=== PATIENT | female | born 1950 | race Caucasian/White ===

== ENCOUNTER 2018-04-25 20:21 | Emergency (ER) | payer MEDICARE, OTHER ==
[~2018-04-25] VITALS: Ht 139.7 cm; Wt 67.6 kg
[2018-04-25 20:26] VITALS: BP 132/87
--- NOTE | 2018-04-25 20:47 | NUR ---
PT AMBULATED TO ER BED 12
--- NOTE | 2018-04-25 21:05 | NUR ---
PT BIBA FOR COUGH X1 WEEK. PT REPORTS NON-PRODUCTIVE COUGH AND BURNING PAIN IN THROAT WITH COUGH. RR SYMMETRICAL, NON-LABORED, WITH BREATH SOUNDS CLEAR THROUGHOUT. PT DENIES N/V/D OR FEVER. ER MD TO SEE PT. SAFETY PRECAUTIONS IN PLACE. WILL CONTINUE TO MONITOR.
[2018-04-25] MEDS ORDERED: AZITHROMYCIN 250 MG TAB PO ONE (22:20)
[2018-04-25 22:30] VITALS: BP 133/87
--- NOTE | 2018-04-25 22:31 | NUR ---
Patient discharged with v/s stable. Written and verbal after care instructions given and explained. Patient alert, oriented and verbalized understanding of instructions. Ambulatory with steady gait. All questions addressed prior to discharge. ID band removed. Patient advised to follow up with PMD. Rx of AZITHROMYCIN given. Patient educated on indication of medication including possible reaction and side effects. Opportunity to ask questions provided and answered.
== END 2018-04-25 22:31 | disposition home or self-care (01) ==
LOC: MED 20:21
DX: J40 Bronchitis, not specified as acute or chronic (principal); K21.9 Gastro-esophageal reflux disease without esophagitis
CPT/HCPCS: 36415; 71045; 87804; 99284